=== PATIENT | male | born 1975 | race Caucasian/White ===

== ENCOUNTER 2016-06-24 12:03 | Emergency (ER) | payer OTHER ==
[~2016-06-24] VITALS: Ht 175.3 cm; Wt 99.8 kg
[~2016-06-24 12:03] MED LIST: ASPI81TA2 PO; METO25TA20 PO; SIMV20TA6 PO
[2016-06-24 12:11] VITALS: BP 126/82
[2016-06-24] MEDS ORDERED: GELATIN SPONGE,ABSORBABLE 1 SPONGE SPONGE TP ONE ×2 (12:21→12:29)
--- NOTE | 2016-06-24 13:00 | NUR ---
WOUND CARE PROVIDED. NO ACTIVE BLEEDING. D/C IN STABLE CONDITION.
== END 2016-06-24 13:02 | disposition home or self-care (01) ==
LOC: ER 12:04
DX: S61.001A Unspecified open wound of right thumb without damage to nail, initial encounter (principal); I10 Essential (primary) hypertension; Z79.82 Long term (current) use of aspirin; W27.8XXA Contact with other nonpowered hand tool, initial encounter; Y93.89 Activity, other specified; Y92.89 Other specified places as the place of occurrence of the external cause; Y99.9 Unspecified external cause status
CPT/HCPCS: 29125; 99283; A4606; A6402 ×2; Z7610

== ENCOUNTER 2016-06-26 12:44 | Emergency (ER) | payer OTHER ==
[~2016-06-26] VITALS: Ht 175.3 cm; Wt 99.8 kg
[2016-06-26 12:44] VITALS: BP 131/94
== END 2016-06-26 13:22 | disposition home or self-care (01) ==
LOC: ER 12:46
DX: S61.011D Laceration without foreign body of right thumb without damage to nail, subsequent encounter (principal); X58.XXXD Exposure to other specified factors, subsequent encounter
CPT/HCPCS: 99282; A4606; A6402; A6403; Z7610

== ENCOUNTER 2017-12-08 09:55 | Emergency (ER) | payer OTHER ==
[~2017-12-08] VITALS: Ht 175.3 cm; Wt 90.7 kg
[~2017-12-08 09:55] MED LIST changes: +ASPI-1169 PO; -ASPI81TA2 PO
[2017-12-08] MEDS ORDERED: LIDOCAINE 1% INJ 50 ML MDV IJ ONE (10:37)
[2017-12-08] MEDS: LIDOCAINE HCL/PF 1% 30 ML VIAL IM ONE (10:38)
[2017-12-08 11:24] VITALS: BP 137/85
--- NOTE | 2017-12-08 11:25 | NUR ---
For discharge [facility] given-verbalized understanding. Dressings on bilateral big toe applied by ER provider-DC home in stable condition
== END 2017-12-08 11:31 | disposition home or self-care (01) ==
LOC: ER 09:59
DX: L60.0 Ingrowing nail (principal); F10.10 Alcohol abuse, uncomplicated; Y90.9 Presence of alcohol in blood, level not specified; Z98.890 Other specified postprocedural states; Z90.6 Acquired absence of other parts of urinary tract; Z79.82 Long term (current) use of aspirin
CPT/HCPCS: 11730; 11732; 99283; A4606; A6402; J3490 ×2; Z7610

== ENCOUNTER 2019-03-11 19:17 | Emergency (ER) | payer OTHER ==
[~2019-03-11] VITALS: Ht 175.3 cm; Wt 99.8 kg
[~2019-03-11 19:17] MED LIST changes: +SIMV-46 PO; -SIMV20TA6 PO
--- NOTE | 2019-03-11 19:44 | NUR ---
PT AAOX4. AMBULATORY. C/O SBP 190'S AT HOME, TOOK AMLODOPINE 5MG AT 5PM, INTERMITTENT CP RADIATING TO LEFT SIDE SINCE 2PM. PLACED IN GOWN, MONITOR, AND PULSE OX. AWAITING MD FOR EVAL.
[2019-03-11] MEDS ORDERED: ASPIRIN 81 MG TAB.CHEW ONE (19:52)
[2019-03-11 19:56] LABS: BASOPHILS # (AUTO) 0.1 /CMM (0.0-0.2); BASOPHILS % (AUTO) 0.7 % (0.0-2.0); EOSINOPHILS % (AUTO) 1.2 % (0.0-6.0); HEMATOCRIT 44 % (39-51); HEMOGLOBIN 14.7 g/dL (13.5-17.5); LYMPHOCYTES % (AUTO) 25.3 % (20.0-44.0); MEAN CORPUSCULAR HGB CONC 33 g/dl (31.0-36.0); MEAN CORPUSCULAR VOLUME 83 fL (80-96); MONOCYTES # (AUTO) 0.9 /CMM (0.1-1.30); MONOCYTES % (AUTO) 7.5 % (2.0-12.0); NEUTROPHILS # (AUTO) 7.9 /CMM (1.8-8.9); NEUTROPHILS % (AUTO) 65.3 % (43.0-81.0); PLATELET COUNT (AUTO) 265 /CMM (150-450); RED BLOOD CELL COUNT(AUTO) 5.34 MIL/uL (4.5-6.0)
[2019-03-11] MEDS ORDERED: ASPIRIN 81 MG TAB.CHEW PO ONE (20:00)
--- NOTE | 2019-03-11 20:12 | NUR ---
XRAY AT BEDSIDE.
[2019-03-11 20:16] LABS: CARBON DIOXIDE 25 mmol/L (21-32); CHLORIDE 105 mmol/L (98-107); CREATININE 1.2 mg/dL (0.6-1.3); GLUCOSE 129 mg/dL (74-106); POTASSIUM 3.9 mmol/L (3.5-5.1); SODIUM SERUM 143 mmol/L (136-145); UREA NITROGEN, BLOOD 21 mg/dL (7-18)
[2019-03-11] MEDS ORDERED: IOHEXOL-350 100 ML VIAL IV ONE (21:32)
[2019-03-11] MEDS ORDERED: CT SWABBABLE VALVE TRANS SET 1 EA INFUS.SET MC ONE (21:32)
[2019-03-11] MEDS ORDERED: IV NS 0.9% 250 ML IV ONE (21:33)
--- NOTE | 2019-03-11 21:35 | NUR ---
PT BROUGHT TO CT
--- NOTE | 2019-03-11 22:37 | NUR ---
Patient discharged to home in stable condition. Written and verbal after care instructions given. Patient verbalizes understanding of instruction. IV removed. Catheter intact and site benign. Pressure and 4x4 applied to site. No bleeding noted. PT ambulatory with a steady gait
[2019-03-11 22:38] VITALS: BP 134/88
== END 2019-03-11 22:40 | disposition home or self-care (01) ==
LOC: ER 19:17
DX: R07.89 Other chest pain (principal); R51 Headache; R03.0 Elevated blood-pressure reading, without diagnosis of hypertension; E78.1 Pure hyperglyceridemia; F10.10 Alcohol abuse, uncomplicated; Y90.9 Presence of alcohol in blood, level not specified; Z98.890 Other specified postprocedural states; Z79.82 Long term (current) use of aspirin; Z79.899 Other long term (current) drug therapy
CPT/HCPCS: 36415; 70496; 70498; 71045; 80048; 84484; 85025; 93005 ×2; 99284; J7050; Q9967

== ENCOUNTER 2020-10-05 19:25 | Emergency (ER) | payer OTHER ==
[~2020-10-05] VITALS: Ht 170.2 cm; Wt 99.8 kg
[2020-10-05 19:39] VITALS: BP 134/88
--- NOTE | 2020-10-05 20:21 | NUR ---
PT NOT IN WAITING ROOM FOR BED ASSIGNMENT.
--- NOTE | 2020-10-05 20:25 | NUR ---
PT NOT IN WAITING ROOM FOR BED ASSIGNMENT.
== END 2020-10-05 20:31 | disposition left against medical advice (07) ==
LOC: ER 19:27
DX: R53.1 Weakness (principal); Z53.21 Procedure and treatment not carried out due to patient leaving prior to being seen by health care provider

== ENCOUNTER 2020-11-14 00:04 | Emergency (ER) | payer OTHER ==
[~2020-11-14] VITALS: Ht 172.7 cm; Wt 90.7 kg
--- NOTE | 2020-11-14 00:19 | NUR ---
BIBS C/O CHEST PAIN FOR 3-4 HOURS TOOK ASPIRIN [employer]. NON RADIATING PAIN, 10/10 PAIN. PT ALERT AND ORIENTED X3. AMBULATORY WITH NON LABORED BREAHTING.
--- NOTE | 2020-11-14 00:21 | NUR ---
BLOOD TAKEN AND SENT TO LAB.
[2020-11-14 00:28] LABS: BASOPHILS # (AUTO) 0.1 K/uL (0.0-0.2); BASOPHILS % (AUTO) 1.3 % (0.0-2.0); EOSINOPHILS % (AUTO) 1.9 % (0.0-6.0); HEMATOCRIT 42 % (39-51); HEMOGLOBIN 14.4 g/dL (13.5-17.5); LYMPHOCYTES # (AUTO) 3.2 K/uL (0.8-4.8); LYMPHOCYTES % (AUTO) 41.3 % (20.0-44.0); MEAN CORPUSCULAR HGB CONC 34 g/dl (31.0-36.0); MEAN CORPUSCULAR VOLUME 82 fL (80-96); MONOCYTES # (AUTO) 0.6 K/uL (0.1-1.30); MONOCYTES % (AUTO) 7.8 % (2.0-12.0); NEUTROPHILS # (AUTO) 3.7 K/uL (1.8-8.9); NEUTROPHILS % (AUTO) 47.7 % (43.0-81.0); PLATELET COUNT (AUTO) 256 K/uL (150-450); RED BLOOD CELL COUNT(AUTO) 5.12 MIL/uL (4.5-6.0); WHITE BLOOD COUNT (AUTO) 7.7 K/uL (4.3-11.0)
[2020-11-14 00:35] LABS: CALCIUM, SERUM 9.5 mg/dL (8.5-10.1); CARBON DIOXIDE 26 mmol/L (21-32); CHLORIDE 104 mmol/L (98-107); CREATININE 1.2 mg/dL (0.6-1.3); GLUCOSE 132 mg/dL (74-106); POTASSIUM 3.7 mmol/L (3.5-5.1); SODIUM SERUM 141 mmol/L (136-145); UREA NITROGEN, BLOOD 15 mg/dL (7-18)
[2020-11-14] MEDS ORDERED: ACETAMINOPHEN 325 MG TABLET PO ONE (01:30)
[2020-11-14] MEDS ORDERED: ASPIRIN 81 MG TAB.CHEW PO ONE (01:30)
[2020-11-14] MEDS ORDERED: ASPIRIN 325 MG TABLET ONE (01:32)
[2020-11-14] MEDS ORDERED: ACETAMINOPHEN 325 MG TABLET ONE (01:32)
[2020-11-14] MEDS ORDERED: IBUP-1955 PO (03:50)
--- NOTE | 2020-11-14 03:56 | NUR ---
Patient discharged to home in stable condition. Written and verbal after care instructions given. Patient verbalizes understanding of instruction. RX given.
[2020-11-14 03:57] VITALS: BP 135/80
== END 2020-11-14 03:57 | disposition home or self-care (01) ==
LOC: ER 00:04
DX: R07.89 Other chest pain (principal); R22.42 Localized swelling, mass and lump, left lower limb; I10 Essential (primary) hypertension; E78.5 Hyperlipidemia, unspecified; Z98.890 Other specified postprocedural states; Z79.899 Other long term (current) drug therapy; Z79.82 Long term (current) use of aspirin
CPT/HCPCS: 36415; 71045-TC; 80048-TC; 84484-TC; 85025-TC; 85378-TC; 93971-TC

== ENCOUNTER 2022-01-11 11:33 | Emergency (ER) | payer OTHER ==
[~2022-01-11] VITALS: Ht 175.3 cm; Wt 90.7 kg
[~2022-01-11 11:33] MED LIST changes: +IBUP-1955 PO
[2022-01-11 11:43] VITALS: BP 136/85
--- NOTE | 2022-01-11 11:45 | NUR ---
c/o worsening back pain x 1 month,denies any trauma
--- NOTE | 2022-01-11 12:00 | NUR ---
waiting for MD evaluation
--- NOTE | 2022-01-11 12:08 | NUR ---
urine sample obtained sent to lab
--- NOTE | 2022-01-11 12:10 | NUR ---
tech at bedside for lab draw
[2022-01-11 12:39] LABS: BASOPHILS # (AUTO) 0.1 K/uL (0.0-0.2); BASOPHILS % (AUTO) 0.8 % (0.0-2.0); EOSINOPHILS % (AUTO) 1.4 % (0.0-6.0); HEMATOCRIT 45 % (39-51); HEMOGLOBIN 15.6 g/dL (13.5-17.5); LYMPHOCYTES # (AUTO) 2.6 K/uL (0.8-4.8); LYMPHOCYTES % (AUTO) 37.7 % (20.0-44.0); MEAN CORPUSCULAR HGB CONC 35 g/dl (31.0-36.0); MEAN CORPUSCULAR VOLUME 80 fL (80-96); MONOCYTES # (AUTO) 0.6 K/uL (0.1-1.30); MONOCYTES % (AUTO) 8.6 % (2.0-12.0); NEUTROPHILS # (AUTO) 3.5 K/uL (1.8-8.9); NEUTROPHILS % (AUTO) 51.5 % (43.0-81.0); PLATELET COUNT (AUTO) 216 K/uL (150-450); RED BLOOD CELL COUNT(AUTO) 5.61 MIL/uL (4.5-6.0); WHITE BLOOD COUNT (AUTO) 6.9 K/uL (4.3-11.0)
[2022-01-11 12:46] LABS: BILIRUBIN,URINE NEGATIVE (NEGATIVE); COLOR,URINE YELLOW (YELLOW); LEUKOCYTE ESTERASE ,URINE NEGATIVE (NEGATIVE); NITRITE, URINE NEGATIVE (NEGATIVE); PH,URINE 5.5 (5.0-8.0); PROTEIN,URINE NEGATIVE (NEGATIVE); UGLUCOSE NEGATIVE (NEGATIVE); UROBILINOGEN,URINE 0.2 EU/dL (0.2)
[2022-01-11 12:49] LABS: CALCIUM, SERUM 9.7 mg/dL (8.5-10.1); CREATININE 0.9 mg/dL (0.6-1.3); POTASSIUM 3.8 mmol/L (3.5-5.1)
[2022-01-11] MEDS ORDERED: IBUP-1955 PO (14:30)
--- NOTE | 2022-01-11 14:36 | NUR ---
Patient discharged to home in stable condition. Written and verbal after care instructions given. Patient verbalizes understanding of instruction.
== END 2022-01-11 14:37 | disposition home or self-care (01) ==
LOC: ER 11:40
DX: R10.9 Unspecified abdominal pain (principal); I10 Essential (primary) hypertension; E78.5 Hyperlipidemia, unspecified; Z79.899 Other long term (current) drug therapy
CPT/HCPCS: 36415; 80048-TC; 85025-TC